=== PATIENT | female | born 1955 | race Caucasian/White ===

== ENCOUNTER 2018-02-12 18:23 | Emergency (ER) | payer OTHER ==
[~2018-02-12] VITALS: Ht 165.1 cm; Wt 63.5 kg
[2018-02-12] MEDS ORDERED: SYNTHROID112 MCG (18:39)
[2018-02-12] MEDS ORDERED: NEURIN (18:40)
== END 2018-02-12 21:48 | disposition home or self-care (01) ==
LOC: ER 18:23
DX: K29.70 Gastritis, unspecified, without bleeding (principal); R11.11 Vomiting without nausea; E86.0 Dehydration

== ENCOUNTER 2024-07-28 05:50 | Day surgery (SDC) | payer OTHER ==
[2024-07-22 09:48] VITALS: BP 137/81
[2024-07-22 10:03] LABS: URINE APPEARANCE Clear; URINE BILIRRUBIN Negative (NEGATIVE); URINE BLOOD Negative; URINE COLOR Yellow; URINE GLUCOSE Negative (NEGATIVE); URINE KETONE Negative (NEGATIVE); URINE LEUKOCYTE Trace; URINE NITRATE Negative; URINE PROTEIN Negative (NEGATIVE); URINE UROBILINOGEN 0.2 E.U./dl
[2024-07-22 10:06] LABS: URINE BACTERIA 30.5 uL (0.0-1933); URINE RBC 9.4 uL (0.0-20.8); URINE WBC 2.3 uL (0.0-23.2)
[2024-07-22 10:11] LABS: HEMATOCRIT 40.1 % (36.0-45.00); HEMOGLOBIN 13.3 g/dL (12.0-15.00); MEAN CELL VOLUME 91.1 fL (80.00-100.00); MEAN CORPUSCULAR HEMOGLOBIN 30.3 pg (27.00-32.0); MEAN CORPUSCULAR HGB CONC 33.2 g/dl (32.0-36.0); PLATELET COUNT 278 K/uL (150-450); RED CELL DISTRIBUTION WIDTH 13.3 % (11.5-14.5)
[2024-07-22 10:43] LABS: PARTIAL THROMBOPLASTIN TIME 28.8 SECONDS (22.0-34.0); PROTHROMBIN TIME 10.9 SECONDS (9.0-11.5)
[2024-07-22 11:42] LABS: ALBUMIN 3.8 gm/dL (3.4-5.0); BILIRUBIN TOTAL 1.39 mg/dL (0.3-1.2); CALCIUM 9.4 mg/dL (8.5-10.1); CREATININE SERUM 0.5 mg/dL (0.55-1.02); GFR 121.62; GLOBULINA 3.3 G/DL (2.4-3.5); POTASSIUM 4.13 mEq/L (3.5-5.1); TOTAL PROTEIN 7.1 gm/dL (6.4-8.2)
[~2024-07-28] VITALS: Ht 165.1 cm; Wt 62.6 kg
[~2024-07-28 05:50] MED LIST: ANIMAL CHEWS1 EACH PO; ATORVASTATIN CA10 MG PO; CALCIO; MAGNESIUM200 MG; NEURIN; NEURONTIN300 MG; SYMBICORT 16010.2 GM; SYNTHROID112 MCG; ZYRTEC10 M3 PO
[2024-07-28] MEDS ORDERED: CEFAZOLIN SODIUM 1,000 MG VIAL ONE (08:36)
== END 2024-07-28 11:55 | disposition home or self-care (01) ==
LOC: CIR.AMB 05:50
PROVIDERS: ATTEND Orthopaedic Surgery Hand Surgery
DX: D21.11 Benign neoplasm of connective and other soft tissue of right upper limb, including shoulder (principal); R22.31 Localized swelling, mass and lump, right upper limb; J45.909 Unspecified asthma, uncomplicated; E03.8 Other specified hypothyroidism; Z88.6 Allergy status to analgesic agent; M19.90 Unspecified osteoarthritis, unspecified site